=== PATIENT | female | born 1930 | race Caucasian/White ===

== ENCOUNTER 2017-02-14 19:50 | Emergency (ER) | payer OTHER ==
[~2017-02-14] VITALS: Ht 167.6 cm; Wt 59.1 kg
[~2017-02-14 19:50] MED LIST: ASPIRIN325 MG PO; CARDIZEM CD180 MG PO; DILTIAZEM ER180 M2 PO; MECLIZINE HCL12.5 M1 PO
[2017-02-15] MEDS ORDERED: COLACE100 MG PO (02:09)
[2017-02-15] MEDS ORDERED: PERCOCET 5/31 TABLET PO (02:09)
[2017-02-15 02:31] VITALS: BP 170/72
== END 2017-02-15 02:59 | disposition home or self-care (01) ==
LOC: EME 19:50
PROC: 0PSJXZZ Reposition Left Radius, External Approach (ICD-10-PCS; principal; 2017-02-14)
DX: S52.502A Unspecified fracture of the lower end of left radius, initial encounter for closed fracture (principal); W10.9XXA Fall (on) (from) unspecified stairs and steps, initial encounter; Y92.009 Unspecified place in unspecified non-institutional (private) residence as the place of occurrence of the external cause; M19.032 Primary osteoarthritis, left wrist; I10 Essential (primary) hypertension; Z79.82 Long term (current) use of aspirin
CPT/HCPCS: 73100; 73110; 93005; 93971; 99281; 99285; J2270; J2405; J7040